=== PATIENT | female | born 2005 | race Caucasian/White ===

== ENCOUNTER 2024-08-02 11:56 | Emergency (ER) | payer BC, SELFPAY ==
[2024-08-02 12:18] VITALS: BP 131/88; PULSE 72; RESP 16; TEMP 37.1; O2SAT 100; BMI 21.9
--- NOTE | 2024-08-02 12:36 | ED_ITS ---
HPI - Female Genitourinary General Chief complaint: Urogenital Problems, Female Stated complaint: possible UTI Time Seen by Provider: 08/02/24 11:57 History of Present Illness HPI Narrative: This 18-year-old female comes in with dysuria symptoms for the past couple days. She reports increased frequency and pain when voiding. She states that the symptoms seem to be getting worse. She does not have a previous history of urinary tract infection. She does not report any fevers. Related Data Previous Rx's ?Medication ?Instructions ?Recorded cephalexin 500 mg capsule 500 mg PO TID 7 days #21 caps 08/02/24 Allergies Allergy/AdvReac Type Severity Reaction Status Date / Time No Known Drug Allergies Allergy Verified 08/02/24 12:18 Review of Systems Status of ROS: Reports: 10 or more systems reviewed and unremarkable except as noted in History and below Narrative: Constitutional: No fevers, no weight gain or loss. Eyes: No discharge. No vision changes. HENT: No congestion, no sore throat, no ear pain. Cardiovascular: No chest pain, no palpitations. Respiratory: No shortness of breath, no wheezes, no cough. Gastrointestinal: No vomiting, no diarrhea. Genitourinary: Dysuria symptoms as described above. Musculoskeletal: Normal range of motion. Skin: No rashes, no pruritis. Neurological: No dizziness, weakness, sensory change, speech change. Endo/Heme/Allergies: No bruising or bleeding. No polydipsia. Pysch: no suicidality, no anxiety, no insomnia. All other systems reviewed and are negative. Exam Narrative: Exam Narrative: Constitutional: Well-developed, well-nourished, no acute distress. HEENT: Normocephalic, atraumatic. Neck: Normal range of motion. Nontender. Supple. Heart: Regular. No murmurs. Normal rate. Intact distal pulses. Lungs: Clear to auscultation. No chest discomfort. No wheezes, rhonchi, or rales. Abdomen: Normal bowel sounds. Nontender. No rebound tenderness. Genitalia: Deferred. Back: No midline tenderness. Normal range of motion. Extremities: Normal range of motion. No injury. Skin: Intact. No rash. Warm. No erythema or pallor. Neurologic: No altered sensation. No weakness. Alert and oriented. Psychiatric: No suicidality. No anxiety or depression. No insomnia. Nursing notes and vitals signs are reviewed. Const: Vital Signs, click to edit/add: Vital Signs - 24 hr 08/02/24 12:18 Temperature 98.7 F Pulse Rate [Pulse Oximeter] 72 Respiratory Rate 16 Blood Pressure [Ri ght Upper Arm] 131/88 Pulse Oximetry 100 Oxygen Delivery Me thod Room Air Course Vital Signs Vital signs: Initial Vital Signs Temperature 98.7 F 08/02/24 12:18 Temperature Source Temporal Artery Scan 08/02/24 12:18 Pulse Rate 72 08/02/24 12:18 Pulse Rhythm Regular 08/02/24 12:18 Respiratory Rate 16 08/02/24 12:18 Blood Pressure 131/88 08/02/24 12:18 Blood Pressure Mean 102 08/02/24 12:18 Blood Pressure Position Sitting 08/02/24 12:18 Pulse Oximetry 100 08/02/24 12:18 Oxygen Delivery Method Room Air 08/02/24 12:18 Vital Signs Temperature 98.7 F 08/02/24 12:18 Pulse Rate 72 08/02/24 12:18 Respiratory Rate 16 08/02/24 12:18 Blood Pressure 131/88 08/02/24 12:18 Pulse Oximetry 100 08/02/24 12:18 Oxygen Delivery Method Room Air 08/02/24 12:18 Temperature 98.7 F 08/02/24 12:18 Pulse Rate 72 08/02/24 12:18 Respiratory Rate 16 08/02/24 12:18 Blood Pressure 131/88 08/02/24 12:18 Pulse Oximetry 100 08/02/24 12:18 Oxygen Delivery Method Room Air 08/02/24 12:18 MDM - Female Genitourinary MDM Narrative Medical decision making narrative: This patient comes in with dysuria symptoms suspicious for urinary tract infection. Urinalysis does confirm evidence of infection. The patient did receive an oral tablet of peridium here. I provided a prescription for Keflex. Lab Data Labs: Lab Results 08/02/24 Range/Units 12:30 Urine Color Yellow (Yellow) Urine Appearance Clear (Clear) Urine pH 7.0 (5.0-8.5) Ur Specific [employer] 1.010 (1.000-1.030) Urine Protein Negative (Negative) Urine Glucose (UA) Negative (Negative) Urine Ketones Negative (Negative) Urine Blood 1+ A (Negative) Urine Nitrite Negative (Negative) Urine Bilirubin Negative (Negative) Urine Urobilinogen 0.2 (0.2-1.0) Ur Leukocyte Esterase 1+ A (Negative) Urine RBC 0-2 (0-2) Urine WBC 10-25 A (0-5) Ur Squamous Epith Cells Few (None-Few) Urine Bacteria Moderate A (None) Discharge Plan Discharge Clinical Impression: Urinary tract infection Additional Instructions: Take medication as prescribed. Take plenty of fluids. Follow up with MD return if worsening. Prescriptions: New cephalexin 500 mg capsule 500 mg PO TID 7 Days Qty: 21 0RF Follow Up/Referrals: Kristal Beaver MD [Staff Physician] - Stand Alone Forms: [address] [employer] Info Instructions
[2024-08-02 12:54] LABS: Appearance Urine Clear (Clear); Bilirubin Urine Negative (Negative); Blood Urine 1+ (Negative); Color Urine Yellow (Yellow); Glucose Urine Negative (Negative); Ketones Urine Negative (Negative); Leukocyte Esterase Urine 1+ (Negative); Nitrite Urine Negative (Negative); Protein Urine Negative (Negative); Urobilinogen Urine 0.2 (0.2-1.0)
[2024-08-02 13:15] LABS: Bacteria Urine Moderate; RBC Urine 0-2 (0-2); Squamous Epithelial Cell Urine Few (None-Few)
[2024-08-02] MEDS: PHENAZOPYRIDINE HCL 200 MG TABLET PO (13:42)
== END 2024-08-02 13:47 | disposition home or self-care (01) ==
PROVIDERS: Emergency Provider Emergency Medicine Emergency Medical Services
DX: N39.0 Urinary tract infection, site not specified (principal)
CPT/HCPCS: 81001; 87086; 87186; 99283; 99284; A9270

== ENCOUNTER 2024-11-24 10:01 | Outpatient (CLI) | payer BC, SELFPAY | END 2024-11-24 10:02 | disposition home or self-care (01) | LOC: US 10:02 | PROVIDERS: Visit Provider Advanced Practice Midwife | DX: Z34.91 Encounter for supervision of normal pregnancy, unspecified, first trimester (principal); O20.9 Hemorrhage in early pregnancy, unspecified; Z3A.08 8 weeks gestation of pregnancy | CPT/HCPCS: 76817; 83021; 86592; 86703; 86704; 86706; 86762; 86787; 86803; 86850; 86900; 86901; 87086; 87340 ==

== ENCOUNTER 2025-01-19 11:46 | Outpatient (CLI) | payer BC, SELFPAY ==
[2025-01-19 16:25] LABS: Chlamydia DNA Amplified* NOT DETECTED (No Detected); GC DNA Amplified* NOT DETECTED (No Detected)
== END 2025-01-19 11:47 | disposition home or self-care (01) ==
LOC: NFLDREF 11:46
PROVIDERS: Visit Provider Advanced Practice Midwife
DX: Z34.92 Encounter for supervision of normal pregnancy, unspecified, second trimester (principal); Z3A.16 16 weeks gestation of pregnancy
CPT/HCPCS: 87491; 87591

== ENCOUNTER 2025-02-16 12:06 | Outpatient (CLI) | payer BC, SELFPAY ==
--- NOTE | 2025-02-16 12:15 | CRLHL7_ITS ---
For Patients: As a result of the 21st Century Cures Act, medical imaging exams and procedure reports are released immediately into your electronic medical record. You may view this report before your referring provider. If you have questions, please contact your health care provider. LMP: 09/27/2024. ANGÉLICA by LMP: 07/04/2025. GA: 20w, 2d. Single. INDICATION: Supervision of normal . CERVIX: Visualized. Measurement: 3.9. POSITIONING: Breech. AMNIOTIC FLUID: 4.7 cm SDP. PLACENTA: Technique: Transabdominal. PLACENTA POSITION: Posterior. Placenta tip to internal os 4.9 cm. Placental insertion central. DOPPLER: Umbilical artery: 3-vessel cord. Biometry: BPD: 4.6 cm. 19w, 6d, 34 percent. HC: 17.7 cm. 20w, 1d, 35 percent. AC: 15.1 cm. 20w, 2d, 44 percent. FL: 3.2 cm. 20w, 0d, 32 percent. FL/AC ratio: 21.31 percent. HC/AC ratio: 1.17. Heart Rate: 145 bpm. EFW: 335.25 g. Weight: 0 lbs, 12 oz. age by this US: 20w, 1d. ANGÉLICA by this US: 07/05/2025. Percentile by ANGÉLICA: 38 percent. SURVEY: Observed Structures Cerebellum: Yes. 2.0 cm; 20w2d. Cisterna Magna: Yes. 3.0 mm. Nuchal Fold: Yes. 5.4 mm. Lateral Ventricle: Yes. 6.3 mm. CSP: Yes. Midline Falx: Yes. Choroid Plexus: Yes. Spine: Yes. Stomach: Yes. Abd Cord Insertion: Yes. Urinary Bladder: Yes. Kidneys: Yes. Diaphragm: Yes. Nose/lips: Yes. Orbital view: Yes. Profile: Yes. Upper Extremities: Yes. Lower Extremities: Yes. Hands: Yes. Feet: Yes. Four-Chamber Heart: Yes. LVOT: Yes. RVOT: No. 3VV: No. 3VTV: No. IMPRESSION: 1. Concordance of clinical and sonographic dating. 2. Incomplete visualization of the RVOT, 3 vessel view and 3 vessel trachea view. Remainder of the anatomic survey normal. Short-term follow-up recommended. Clint Chowdhury M.D. Diagnostic Radiologist [email or web address] bM/Dictated by: Clint Chowdhury MD @ 02/16/2025 8:55:00 PM (Electronically Signed)
== END 2025-02-16 12:07 | disposition home or self-care (01) ==
LOC: US 12:06
PROVIDERS: Visit Provider Advanced Practice Midwife
DX: Z34.92 Encounter for supervision of normal pregnancy, unspecified, second trimester (principal); O35.8XX0 Maternal care for other (suspected) fetal abnormality and damage, not applicable or unspecified; Z3A.20 20 weeks gestation of pregnancy
CPT/HCPCS: 76805

== ENCOUNTER 2025-03-23 12:16 | Outpatient (CLI) | payer BC, SELFPAY ==
--- NOTE | 2025-03-23 12:15 | CRLHL7_ITS ---
For Patients: As a result of the Century Cures Act, medical imaging exams and procedure reports are released immediately into your electronic medical record. You may view this report before your referring provider. If you have questions, please contact your health care provider. OB ULTRASOUND FOLLOW-UP ANATOMY LMP: 09/27/2024. ANGÉLICA by LMP: 07/04/2025. GA: 25 w, 2 d. Single. INDICATION: Missing heart view on anatomy scan (hyperactive baby). TECHNIQUE: Real time moon scale imaging of the fetus was performed. Transabdominal imaging performed. CERVIX: Not visualized. POSITIONING: Breech, transverse, multiple. AMNIOTIC FLUID: 6.1 cm SDP (N: greater than 2 x 1 cm) PLACENTA: Technique: Transabdominal. PLACENTA POSITION: Fundal, posterior. DOPPLER: heart rate: 137 bpm. IMPRESSION: Normal four-chamber heart, outflow tracts, three-vessel view, three-vessel trachea view, ductal arch and IVC/SVC. Clint Chowdhury M.D. Diagnostic Radiologist [email or web address] SP/Dictated by: Clint Chowdhury MD @ 03/23/2025 7:11:00 PM (Electronically Signed)
== END 2025-03-23 12:17 | disposition home or self-care (01) ==
LOC: US 12:17
PROVIDERS: Visit Provider Advanced Practice Midwife
DX: Z36.2 Encounter for other antenatal screening follow-up (principal); Z3A.25 25 weeks gestation of pregnancy
CPT/HCPCS: 76816

== ENCOUNTER 2025-04-20 10:20 | Outpatient (CLI) | payer BC, SELFPAY | END 2025-04-20 10:21 | disposition home or self-care (01) | LOC: NFLDREF 04-22 15:53 | PROVIDERS: Visit Provider Advanced Practice Midwife | DX: Z34.03 Encounter for supervision of normal first pregnancy, third trimester (principal) | CPT/HCPCS: 86592 ==

== ENCOUNTER 2025-06-08 10:19 | Outpatient (CLI) | payer BC, SELFPAY ==
[2025-06-09 13:45] LABS: Strep B DNA Probe POSITIVE (Negative)
[2025-06-09 13:55] LABS: Strep B Susceptibility Needed? No
== END 2025-06-08 10:20 | disposition home or self-care (01) ==
LOC: NFLDREF 10:19
PROVIDERS: Visit Provider Advanced Practice Midwife
DX: Z34.90 Encounter for supervision of normal pregnancy, unspecified, unspecified trimester (principal)
CPT/HCPCS: 87081; 87653

== ENCOUNTER 2025-07-06 08:30 | Outpatient (CLI) | payer BC, SELFPAY | END 2025-07-06 08:31 | disposition home or self-care (01) | LOC: NFLDREF 07-17 00:09 | PROVIDERS: Visit Provider Advanced Practice Midwife | DX: Z34.93 Encounter for supervision of normal pregnancy, unspecified, third trimester (principal) | CPT/HCPCS: 87081; 87653 ==

== ENCOUNTER 2025-07-09 11:05 | Outpatient (CLI) | payer BC, SELFPAY ==
--- NOTE | 2025-07-09 11:15 | CRLHL7_ITS ---
For Patients: As a result of the Cures Act, medical imaging exams and procedure reports are released immediately into your electronic medical record. You may view this report before your referring provider. If you have questions, please contact your health care provider. OB ULTRASOUND BIOPHYSICAL PROFILE CLINICAL HISTORY: Post-term . TECHNIQUE: Real time moon scale imaging of the fetus was performed. Transabdominal imaging performed. COMPARISON: 03/23/2025, 02/16/2025, 11/24/2024. FINDINGS: ANGÉLICA by LMP: 07/04/2025. GA: 40 weeks 6 days. Cervix: Not visualized. Positioning: Vertex. Amniotic Fluid: 6.9 cm SDP. BIOPHYSICAL PROFILE Gross Body Movements: 2 Tone: 2 Respiratory Activity: 2 Amniotic Fluid SDP: 2 Total Score: 8 Placenta: TA. Placenta Position: Posterior. Dopplers: 137 bpm. IMPRESSION: 1. Normal biophysical profile score of 8/8. 2. Grade 3 placenta. Clint Chowdhury M.D. Diagnostic Radiologist [email or web address] Transcribed: 2:01 pm DW/Dictated by: Clint Chowdhury MD @ 07/09/2025 12:20:00 PM (Electronically Signed)
== END 2025-07-09 11:06 | disposition home or self-care (01) ==
LOC: US 11:06
PROVIDERS: Visit Provider Advanced Practice Midwife
DX: O48.0 Post-term pregnancy (principal)
CPT/HCPCS: 76819

== ENCOUNTER 2025-07-11 18:45 | Inpatient (IN) | payer BC, SELFPAY ==
[2025-07-11] VITALS (24 sets, daily range): BP systolic 123–164; BP diastolic 59–98; PULSE 67–98; RESP 20; TEMP 36.4–37; O2SAT 98–99; BMI 31.1
[2025-07-11 18:25] LABS: Amnisure Rom* POSITIVE
[2025-07-11] MEDS: AMPICILLIN 2 GM in 0.9 % SODIUM CHLORIDE Mini-bag 100 ML IVPB (19:40)
[2025-07-11] MEDS: LACTATED RINGERS 1000 ML 1,000 ML 125 ML IV (19:40)
--- NOTE | 2025-07-11 20:21 | W.PM.LDBA ---
Subjective History of Present Illness Date Seen: 07/11/25 Narrative: Maggie is being admitted to Labor and Delivery for PROM. She is a 19 year old at 41.0 weeks gestation. Her full history and physical was dictated by Edward Enriquez CNM on 06/15/25. Please see this for details. She ruptured at home around 1715 this evening and continues to leak clear fluid. She has been grace today starting around 0500 and the have been slowly increasing in intensity and frequency throughout the day. She is currently grace regularly and is feeling them in her abdomen and upper legs. She is appreciating good movement. She is supported by her partner Noah. Since admission her blood pressures have been elevated. She denies a headache, RUQ pain, or visual changes. We will do labs and a second IV has been started per policy. We reviewed the possible diagnosis of preeclampsia with severe features and the impactions of the diagnosis for labor. We reviewed that if magnesium was needed she would risk out of CNM care. Specific Issues/Plans Partner: Noah? H&P:?Completed 06/15/25 by YOUSIF Marie # Anemia, Hgb 10.4 at 28wks. Started PO supplement. #GBS positive (repeated at 40 weeks) Ok with antibiotics in labor # Grade 3 placenta at 40.5wks. Reviewed with pt. Imaging:??? Hep B non-immune. 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 COVID: []? Flu: []? Tdap: declined? RSV: ? 32 week mental health: 05/12/2025? Last pap:? none, will plan for 6 wk PP visit? OB - Problem Based A/P Additional Plan (1) SROM (spontaneous rupture of membranes): Status: Acute (2) Pain during labor: Status: Acute (3) Elevated BP without diagnosis of hypertension: Status: Acute (4) Anemia affecting : Status: Acute Plan ASSESSMENT: ? 19yo at 41.0 weeks gestation ? complicated by: anemia, GBS+? Labor type: Spontaneous, Early labor, SROM ? Category 1 tracing?? ? Labor complicated by: elevated blood pressures? GBS positive ? ? PLAN: ? 1. Antibiotic prophylaxis treatment per protocol? 2. Reviewed risks and benefits of Pitocin augmentation vs expectant management. Pt prefers expectant management. Will reevaluate around 6 hours post rupture.? 3. Desires water . Consent signed. Hep C negative. Aware that blood pressures will likely exclude her from this option.? 4. Candidate for analgesia of choice. Planning unmedicated .? 5. Monitor blood pressures per policy. Labs to be collected.? 6. Anticipate ? 7. Second IV placed for elevated blood pressures. ? Delivery/Labor/Induction Plan Plan: expectant management OB Result Labs Blood Type: B (+) positive Rubella: immune RPR/VDLR: nonreactive GBS Status: positive HBsAG: negative OB Exam Physical Exam Vital signs: Temp Pulse Resp BP Pulse Ox 98.6 F 84 20 150/88 H 98 07/11/25 18:03 07/11/25 20:18 07/11/25 18:03 07/11/25 20:18 07/11/25 17:59 Detailed Labor and Delivery Exam Patient Gravid: yes Dilation (cm): 1 (per RN exam) Effacement (%): 60 Consistency: soft Tachysystole: No Contraction intensity: Moderate Fetus (Single) Station: -3 Amniotic Membrane Status: SROM Amniotic Membrane Fluid Description: Clear Heart Rate Baseline: 130 Monitor Accelerations: Present Monitor Decelerations: None Executive Marketing Assistant Variability: Moderate (6-25) (periods of marked)
--- NOTE | 2025-07-11 20:33 | P.ANES_ITS ---
Anesthesia Charges Start Date/Time Anesthesia Start Date: 07/11/25 Anesthesia Start Time: 19:45 Stop Date/Time Anesthesia Stop Date: 07/11/25 Anesthesia Stop Time: 21:16 Coding CPT Codes CPT Codes: ANESTH CS DELIVERY - 81413 ([id number]) P2 - PATIENT W/MILD SYST DISEASE, QZ - ETHICAL HACKER SVC W/O DIRECTOR EMBALMER BY
--- NOTE | 2025-07-11 20:33 | W.ANESCHARGE ---
Anesthesia Charges Start Date/Time Anesthesia Start Date: 07/11/25 Anesthesia Start Time: 19:45 Stop Date/Time Anesthesia Stop Date: 07/11/25 Anesthesia Stop Time: 21:16 Coding CPT Codes CPT Codes: ANESTH CS DELIVERY - 11662 ([id number]) P2 - PATIENT W/MILD SYST DISEASE, QZ - URGENT CARE PHYSICIAN SVC W/O SWITCH ADJUSTER BY
--- NOTE | 2025-07-11 20:34 | P.NB_ITS ---
Nerve Block Nerve Block Time Seen by Provider: 21:08 Date Seen: 07/11/25 Type of block requested by surgeon for post-operative analgesia: TAP Side: bilateral Time out performed: Yes Verification of patient name: Yes Verification of date of : Yes Site marking: site marked Name of person performing procedure: Aries Morris Continuous monitoring Was continuous monitoring of O2 sat, B/P, service crew supervisor, recorded every 15 minutes?: Yes Procedure Checklist: sterile prep, needles and gloves Ultrasound guided. Images saved: Yes Medications given in 5ml increments after negative aspiration: Marcaine %: 0.25 mL: 30 Needle gauge: 20 and Exparel mL: 10 Needle gauge: 20 Patient tolerated procedure well: Yes Additional comments: Injected in 5 mL increments after negative aspiration Block Charges Block Charge (with Pro Fee): TAP Bilateral Use of Ultrasound Machine for Block: Yes- US Guidance/pain block
[2025-07-11 21:06] LABS: Hematocrit* 33.5 % (33.0-51.0); Hemoglobin* 11.3 gm/dL (12.0-16.0); Mean Corpuscular HGB Conc 34 gm/dL (32-36); Mean Corpuscular Hemoglobin 31 pg (26-34); Mean Corpuscular Volume 91 fL (80-100); Red Blood Count* 3.69 m/uL (4.00-5.20); White Blood Count* 8.99 K/uL (4.50-11.00)
[2025-07-11 21:08] LABS: Slide Review Reflex No
[2025-07-11 21:26] LABS: Alanine Aminotransferase* 18 U/L (4-35); Aspartate Amino Transferase* 32 U/L (12-35); Blood Urea Nitrogen* 9 mg/dL (5-24); Creatinine* 0.5 mg/dL (0.5-1.5); Est. Creatinine Clearance* 147.23; Estimated Glomerular Filt Rate 137 ml/min
[2025-07-11] MEDS: AMPICILLIN 1 GM in 0.9 % SODIUM CHLORIDE Mini-bag 100 ML IVPB (23:35)
[2025-07-12] VITALS (106 sets, daily range): BP systolic 108–167; BP diastolic 54–103; PULSE 48–132; RESP 16–20; TEMP 36.6–37.1; O2SAT 90–100
--- NOTE | 2025-07-12 00:39 | P.OBPN_ITS ---
Subjective Date Seen: 07/12/25 Narrative: Maggie has continued to labor and has been working on position changes and the labor warmup. We reevaluated labor progress at 2215 and she was mostly unchanged at that time. She was feeling more intense contractions so requested to wait an additional 2 hours to evaluate the need for Pitocin. She is now grace more uncomfortably per her report but is coping well with them. On SVE by the RN (RN exam to keep examiner consistent) had minimal change. We reviewed the rec ommendation for IV Pitocin augmentation. She was reluctant but understood the rational and is agreeable. She had wanted an unmedicated but is now considering an epidural. We reviewed all other options. She is a candidate for an epidural whenever she chooses but will try hydrotherapy for now. Objective Vital Signs: Last Vital Signs Temp 98.2 F 07/11/25 23:39 Pulse 81 07/12/25 00:10 Resp 20 07/11/25 18:03 BP 133/81 07/12/25 00:10 Pulse Ox 98 07/11/25 17:59 Pelvic Exam Dilation (cm): 1.5 Effacement (%): 60 Station: -2 Contractions Monitor mode: External Contraction Frequency: 3-5 Contraction pattern: Regular Contraction intensity: Moderate Assessment Assessment: early labor Station: -2 Amniotic Membrane Status: SROM Heart Rate Baseline: 135 Cd Reactor Operator Variability: Moderate (6-25) Monitor Accelerations: Present Monitor Decelerations: None Plan Plan: ASSESSMENT: ? 19yo at 41.1 weeks gestation ? complicated by: anemia, GBS+? Labor type: Spontaneous, Early labor, SROM ? Category 1 tracing?? ? Labor complicated by: gestational hypertension, SROM >7 hrs GBS positive ? ? PLAN: ? 1. Continue antibiotic prophylaxis treatment per protocol? 2. Reviewed risks and benefits of Pitocin augmentation vs expectant management. Pt is agreeable to Pitocin augmentation but would like to try to relax with hydrotherapy first. Will plan to start after 30 min or less.? 3. Desires water . Consent signed. Hep C negative. Aware that blood pressures will likely exclude her from this option.? 4. Candidate for analgesia of choice. Planning unmedicated but open to an epidural.? 5. Monitor blood pressures per policy. Labs normal. Diagnosed with gestational hypertension based on blood pressures over 140's greater than 4 hours apart.? 6. Anticipate ?
[2025-07-12] MEDS: OXYTOCIN 30 unit/500 ML in NS 30 UNIT/500 ML BAG IVPB (01:07)
[2025-07-12] MEDS: BUPIVACAINE 0.25% PF 10 ML 10 ML ML EPIDURAL (04:41)
[2025-07-12] MEDS: ROPIVACAINE 0.2% 100 ml 100 ML 12 MG EPIDURAL ×3 (04:41→18:45)
--- NOTE | 2025-07-12 04:51 | P.ANBPRC_ITS ---
PFSH PFS Medical History (Updated 07/11/25 @ 20:49 by Jonna Coronel CNM) No pertinent past medical history ?Z78.9 - Other specified health status (ICD-10) Surgical History (Updated 06/15/25 @ 12:30 by Delma Enriquez CNM) No pertinent past surgical history ?Z78.9 - Other specified health status (ICD-10) Social History (Updated 06/15/25 @ 12:30 by Delma Enriquez CNM) Narrative: SOCIAL? ? Education: some college? ? Work: [employer] from home? ? Partner: Noah? works for [employer] Lives with: Noah Pets: none Abuse: Denies past ? Unable to assess current, partner present? ? Special Diet: Denies? ? Ok with a blood transfusion: yes? ? Culture or yarsani beliefs: denies? RISK FACTORS? ? Exercise Times/wk: walking daily? ? Depression/Anxiety: depression in HS ? Previous Treatments early HS was on SSRI ? Therapy NA Seat Belt Use: Routinely ? Smoking: Denies past/present? ?Vaping quit 3 years ago for 2 years Alcohol/day: Denies while ?denies use when not ? Caffeine: coffee 1- 2 cups? ? Drug Use: Denies past/present? ? THC use in past quit about 3 years ago nothing current What is your current living situation?: I presently have a place to live Problems where you live: no known problems In the past 12 months, utilities in danger of being shut off: no In past 12 months, lack of transportation kept you from medical appts, meetings, work, or getting things needed for daily living: no In the past 12 mos, have been you worried that your food would run out before you had money to buy more?: never true In the past 12 mos, the food you bought just didn't last and you didn't have money to buy more?: never true Smoking Status: Never smoker How often does anyone, including family, friends and others, physically hurt you : never How often does anyone, including family, friends and others, insult or talk down to you: never How often does anyone, including family, friends and others, threaten you with harm: never How often does anyone, including family, friends and others, scream or curse at you: never Meds Home Medications and Allergies Home Medications ?Medication ?Instructions ?Recorded ?Confirmed ?Type ascorbic acid (vitamin C) 1,000 mg 1 g PO QDAY 5 07/11/25 History capsule cholecalciferol (vitamin D3) 25 25 mcg PO QDAY 5 07/11/25 History mcg (1,000 unit) capsule omega-3 fatty acids-fish oil 360 2 cap PO QDAY 07/11/25 History mg-1,200 mg capsule (Fish Oil) vitamins no.167-folic 1 tab PO DAILY 04/20/25 07/11/25 History acid 400 mcg-dha 25 mg chewable tablet (One-A-Day ) ferrous sulfate 325 mg (65 mg 325 mg PO QDAY 05/12/25 07/11/25 History iron) tablet (Feosol) Allergies Allergy/AdvReac Type Severity Reaction Status Date / Time No Known Drug Allergies Allergy Verified 07/09/25 13:11 Results Labs Labs: Laboratory Results - last 24 hr 07/11/25 07/11/25 18:13 21:00 WBC 8.99 RBC 3.69 L Hgb 11.3 L Hct 33.5 MCV 91 MCH 31 MCHC 34 Plt Count 214 BUN 9 Creatinine 0.5 Estimated Creat Clear 147.23 Estimated GFR 137 AST 32 ALT 18 Membrane Rupture POSITIVE Blood Type B Positive Antibody Screen NEGATIVE Vital Signs Vital Signs: Last Vital Signs Temp 98.6 F 07/12/25 04:48 Pulse 90 07/12/25 04:48 Resp 16 07/12/25 01:47 BP 151/72 H 07/12/25 04:48 Pulse Ox 100 07/12/25 04:50 Weight: 79.6 kg Height: 160.02 cm Anesthesia Procedures Epidural Insertion Patient Location: OB Start Time: 04:15 Stop Time: 05:15 Start Date: 07/12/25 Stop Date: 07/12/25 Reason for Block: procedure for pain Patient Position: sitting Performed By: Aries Morris Preanesthetic Checklist: IV checked, risks and benefits discussed, monitors and equipment checked, pre-op evaluation, timeout performed and anesthesia consent Prep: chlorhexidine gluconate Monitoring: blood pressure monitoring, continuous pulse oximetry and heart rate Approach: midline Vertebral Space: lumbar (1-5) Epidural Technique: CONG saline Needle Type: Tuohy needle Injection Technique: continuous catheter Needle gauge: 17 Needle Length (cm): 10 cm Needle Insertion Depth (cm): 6 Catheter Gauge: 19 Catheter Type: multi-orifice Catheter at skin depth (cm): 12 Test Dose Result: negative and lidocaine 1.5% with epinephrine 1 to 200,000
[2025-07-12] MEDS: AMPICILLIN 1 GM in 0.9 % SODIUM CHLORIDE Mini-bag 100 ML IVPB ×4 (04:54→19:14)
[2025-07-12] MEDS: LACTATED RINGERS 1000 ML 1,000 ML 125 ML IV ×2 (06:26→15:45)
--- NOTE | 2025-07-12 11:35 | PM.OBPNL ---
Subjective Date Seen: 07/12/25 Narrative: Maggie was agreeable to and started on Pitocin augmentation over night. she is currently at 11 mU and is grace regularly. She did receive epidural analgesia over night after trying hydrotherapy and nitrous. She has been able to sleep some since placement and is able to rest comfortably. We reviewed AROM augmentation and she is agreeable. She was found to be 8cm/90%/0 station after AROM. AROM without difficulty with a very bulging bag with light stained amniotic fluid. Objective Vital Signs: Last Vital Signs Temp 98.3 F 07/12/25 10:44 Pulse 78 07/12/25 11:20 Resp 16 07/12/25 01:47 BP 132/75 07/12/25 11:20 Pulse Ox 100 07/12/25 05:05 Pelvic Exam Dilation (cm): 8 Effacement (%): 90 Station: 0 Contractions Monitor mode: External Contraction Frequency: 2-4 Contraction pattern: Regular Contraction intensity: Strong/Firm Pitocin Rate (mU/min): 11 Assessment Assessment: active labor Station: 0 Amniotic Membrane Status: SROM (AROM of forebag ) Status: Category l Heart Rate Baseline: 130 Program Analyst Variability: Moderate (6-25) Monitor Accelerations: Present Monitor Decelerations: None Plan Plan: ASSESSMENT: ? 19yo at 41.1 weeks gestation ? complicated by: anemia, GBS+? Labor type: Spontaneous, Early labor, SROM, AROM of forebag ? Category 1 tracing?? ? Labor complicated by: gestational hypertension, SROM >30 hrs GBS positive, adequately treated ? ? PLAN: ? 1. Continue antibiotic prophylaxis treatment per protocol? 2. Continue on Pitocin augmentation. Reviewed risks/benefits of AROM of 2nd bag and she is agreeable. ? 3. Effective epidural in place. 5. Continue to monitor blood pressures per policy. Labs normal.? 6. Anticipate ?
[2025-07-12] MEDS: LABETALOL HCL 5 MG/ML inj IVP ×2 (19:39→19:51)
[2025-07-12] MEDS: MAGNESIUM IV 4 GM/100 ML PIGGYBACK IVPB (20:08)
[2025-07-12] MEDS: MAGNESIUM Infusion 40 GM/1,000 ML IV.SOLN IVPB (20:38)
[2025-07-12] MEDS: miSOPROStoL 800 MCG/4 TABLET PR (20:43)
[2025-07-12] MEDS: TRANEXAMIC ACID 100 MG/ML INJ 1000 MG IV (21:05)
--- NOTE | 2025-07-12 21:15 | P.OBPN_ITS ---
Subjective Time Seen by Provider: 19:00 Date Seen: 07/12/25 Narrative: Maggie reached complete and started pushing at 1539. after a while of pushing it became clear that baby was in an LOP position. she was pushing hard despite a dense epidural but was feeling more pain in her lower back that made pushing more difficult. Around 1550 I reached out to Dr. Harrison to discuss the possibility of an internal rotation. She was not very confident in its success but was open to consultation PRN. Decided to continue pushing with her with encouragement. She did progress with perineal pressure to help direct pushes which she felt improved her confidence in pushing. By the time of this note it was felt that baby had rotated to YENI and progress was being made. Pitocin had been decreased to 6mU due to tachysystole but is now being increased again as contractions have spaced out again. There had been an increase in variables that have improved with rotation of the head. Will continue to support pushing effects and increase Pitocin as needed. 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 19yo at 41.1 weeks gestation ? complicated by: anemia, GBS+? Labor type: Second stage, prolonger ROM ? Category 2 tracing?? ? Labor complicated by: gestational hypertension, prolonged ROM GBS positive, adequately treated ? ? PLAN: ? 1. Continue antibiotic prophylaxis treatment per protocol? 2. Continue on Pitocin augmentation. Increase as needed for adequate contractions. ? 3. Effective epidural in place. 5. Continue to monitor blood pressures per policy. 6. Consultation with OB for possible internal rotation but baby rotated spontaneously with continue pushing and position changes. 7. Continue second stage with support, encouragement, and continue position changes to promote position and descent. 8. Anticipate ?
--- NOTE | 2025-07-12 21:46 | W.PM.OBVAGDE ---
OB Procedure Vag Delivery Mother Details Mother Details: The patient is a 19 year-old, 1, Para 0, admitted on 07/11/25 at 41.1 Days gestation. : 1 Para: 1 Weeks Gestation: 41.1 Admission Date: 07/11/25 Additional Details Amniotic Membrane Status: SROM Amniotic Membrane Rupture Date: 07/11/25 Amniotic Membrane Rupture Time: 17:15 Amniotic Membrane Fluid Description: Meconium Stained and Green Analgesia/Anesthesia Type: Epidural Waterbirth: No Pitcoin: Yes Intrapartal Events: Labor Augmentation, ROM >18 Hours and Prolonged 2nd Stage >2.5 Hrs Delivery augmentation: rupture of membranes and pitocin Labor Onset: 11:30 Complete: 15:39 Pushin:48 Heart: heart tones during second stage were category 2. Variable deceleration were common in the first 1.5-2 hours of pushing but improved with head rotation. There was a prolonged deceleration to the 80's with a large head . Delivery Details Delivery Date: 07/12/25 Delivery Time: 20:27 Route of delivery: Gender: Male Viability: Alive; Heart Rate Present Position at Delivery: OA Delivery Details: Patient was admitted for PROM and progressed slowly with Pitocin and rupture of a 2nd bag augmentation. SROM noted on 07/11/25 at 1715 with clear fluid. AROM of a second bag showed light stained amniotic fluid that did progress to moderately stained as second stage progressed. She did develop preeclampsia with severe features at 2007 with magnesium was started and blood pressures were treated. A consultation with Dr. Harrison and the agreement was made that she would manage the preeclampsia and after delivery but that I would continue to manage the labor given how close she was to delivery. At this time I also requested that she come in as there was concern that she could need vacuum assistance due to slow descent and maternal fatigue. In the end these were not needed but she graciously agreed to come in to evaluate anyway. Patient was complete at 1539 and pushing at 1548. of a viable male at 2041 in left tilt. There was a prolonged crown and difficulty delivering the head over multiple contractions. Soft tissue was evaluated but this was not impeding delivery as I was able to palpate around the head without difficulty. Gentle traction was placed on the head with the last few pushes to help with delivery. Vertex delivered YENI but rotated LOP after delivery of the head. No shoulder. Loose nuchal x1 was easily reduced. Body delivered easily and without incident. passed to mothers abdomen.. No cry and minimal tone was initially noted so the cord was immediately clamped and cut and he was brought to the warmer for assessment. By 1 minute of life her had improved and her was brought back to [facility] chest when he was deemed stable. APGARS were 7 at one minute and 9 at five minutes respectively. Intact placenta with a 3 vessel cord delivered spontaneously at 2040. Fundus firm with massage. Pitocin was started immediately after delivery and rectal Cytotec was given shortly after for decreased fundal tone and bleeding. Her bladder was emptied for about 300mL urine. There were clots with fundal massage and continued trickling of blood so TXA was also initiated. A small 2nd degree identified and repaired in typical fashion. QBL 900 cc. Mother and baby stable; mother plans to breastfeed. weight 3465g. 1 Minute Interval Total Score: 7 5 Minute Interval Total Score: 9 Additional Details Shoulder Dystocia: No Placenta Delivery Time: 20:41 Placental Delivery Description: Spontaneous Delivery repair: Vicryl Procedure Done: Global Blood Loss: 900 Laceration: Perineal - 2nd Degree Episiotomy Description: None Blood Loss Measurement Type: QBL Bakri Used: No Sponge/Need Count Correct: Yes Cord Vessel Description: 3 Vessels, Nuchal Cord and Reduced Event Summary Status: Mother and were stable after delivery. Disposition: floor
--- NOTE | 2025-07-12 22:12 | PM.OBCN1 ---
OB - CN: HPI Date of Consult Date Seen: 07/12/25 Patient: [facility] Patient Consult date: 07/12/25 Requesting Physician: Jonna Coronel CNM Primary Care Provider: Not a Local Provider Consult Narrative Reason for consult: gestational hypertension Narrative: The patient is a 19 year old G 1 P 0 at 41 1/7 weeks gestation that was admitted to the Center on 07/11/25 for PROM. Labor augmented with pitocin and amniotomy of forebag. Received GBS prophylaxis per protocol. During first stage of labor, she had 2 BP values 160/90s, not sustained with repeats 140s/80-90s. Labs were normal and the increased blood pressure was attributed to heightened shaking anxiety. Overnight, she had mildly elevated Bps 140-150s/70-90s. This evening, during her second stage of labor, following 2 hours of active pushing, she had sustained elevation of BP 163-167/79-89 over 30 minutes. She was treated with 2 doses of IV labetalol and I was notified and recommended starting magnesium sulfate for 24 hours. History of Present Dating criteria: based on LMP care: [facility] Ultrasounds: normal 1st trimester US and normal mid trimester US Medical Complications: anemia History History 1 Elective abortions Para 0 Spontaneous abortions Hx # Term Pregnancies Ectopic pregnancies Hx # Pregnancies Multiple births Number of Living Children 0 Labs Blood type: B (+) positive Rubella: immune RPR/VDLR: nonreactive GBS status: positive HBsAG: negative OB Labs: Lab Assessment Start: 07/11/25 18:53 Freq: ONCE Status: Complete Protocol: PC.OBGBS Activity Type Activity Date Activity User E-sign Co-sign Detail Recorded Client Recorded Date Recorded By Document 07/11/25 18:53 [facility] No Response 07/11/25 19:08 [facility] 07/11/25 18:53 Lab Assessment GBS Status positive GBS Additional Criteria None Is Patient Allergic to Penicillin? No Treatment Required OK Are Labs Available Yes Maternal Blood Type B Maternal RH Factor Positive Evaluate Maternal Rubella Immune Status Immune Hepatitis B Surface Antigen Negative Maternal HIV Status Negative Maternal Syphillis (RPR) Status Negative [facility] Medical History No pertinent past medical history ?Z78.9 - Other specified health status (ICD-10) Surgical History No pertinent past surgical history ?Z78.9 - Other specified health status (ICD-10) Social History Narrative: SOCIAL? ? Education: some college? ? 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 ? Partner: Noah? works for [email or web address] Lives with: Noah Pets: none Abuse: Denies past ? Unable to assess current, partner present? ? Special Diet: Denies? ? Ok with a blood transfusion: yes? ? Culture or jewish beliefs: denies? RISK FACTORS? ? Exercise Times/wk: walking daily? ? Depression/Anxiety: depression in HS ? Previous Treatments early HS was on SSRI ? Therapy NA Seat Belt Use: Routinely ? Smoking: Denies past/present? ?Vaping quit 3 years ago for 2 years Alcohol/day: Denies while ?denies use when not ? Caffeine: coffee 1- 2 cups? ? Drug Use: Denies past/present? ? THC use in past quit about 3 years ago nothing current What is your current living situation?: I presently have a place to live Problems where you live: no known problems In the past 12 months, utilities in danger of being shut off: no In past 12 months, lack of transportation kept you from medical appts, meetings, work, or getting things needed for daily living: no In the past 12 mos, have been you worried that your food would run out before you had money to buy more?: never true In the past 12 mos, the food you bought just didn't last and you didn't have money to buy more?: never true Smoking Status: Never smoker How often does anyone, including family, friends and others, physically hurt you: never How often does anyone, including family, friends and others, insult or talk down to you: never How often does anyone, including family, friends and others, threaten you with harm: never How often does anyone, including family, friends and others, scream or curse at you: never Meds Home Medications and Allergies Home Medications ?Medication ?Instructions ?Recorded ?Confirmed ?Type ascorbic acid (vitamin C) 1,000 mg 1 g PO QDAY 11/24/24 07/11/25 History capsule cholecalciferol (vitamin D3) 25 25 mcg PO QDAY 11/24/24 07/11/25 History mcg (1,000 unit) capsule omega-3 fatty acids-fish oil 360 2 cap PO QDAY 11/24/24 07/11/25 History mg-1,200 mg capsule (Fish Oil) vitamins no.167-folic 1 tab PO DAILY 04/20/25 07/11/25 History acid 400 mcg-dha 25 mg chewable tablet (One-A-Day ) ferrous sulfate 325 mg (65 mg 325 mg PO QDAY 05/12/25 07/11/25 History iron) tablet (Feosol) Allergies Allergy/AdvReac Type Severity Reaction Status Date / Time No Known Drug Allergies Allergy Verified 07/09/25 13:11 OB - H&P: Exam Physical Exam: Vital signs: Temp Pulse Resp BP Pulse Ox 98 F 89 16 154/85 H 100 07/12/25 21:22 07/12/25 22:02 07/12/25 01:47 07/12/25 22:02 07/12/25 05:05 Constitutional: Constitutional: mild distress Routine HEENT Exam: Head: Present normal inspection Routine Respiratory Exam: Comments: Normal respiratory effort Routine Cardiovascular Exam: Cardiovascular: RRR Detailed Abdominal Exam: Comments: gravid Routine Exam: Comments: fetus Routine Extremities Exam: Extremities: Present normal inspection; Absent calf tenderness or pedal edema OB - CN: A/P Assessment and Plan (1) Severe pre-eclampsia affecting childbirth: Status: Acute Plan Transfer of care to OB MD service. Mag infusion for 24 hours. Serial labs.
[2025-07-12 23:26] LABS: Hematocrit* 28.8 % (33.0-51.0); Hemoglobin* 9.8 gm/dL (12.0-16.0); Mean Corpuscular HGB Conc 34 gm/dL (32-36); Mean Corpuscular Hemoglobin 31 pg (26-34); Mean Corpuscular Volume 90 fL (80-100); Red Blood Count* 3.21 m/uL (4.00-5.20); White Blood Count* 17.26 K/uL (4.50-11.00)
[2025-07-12 23:30] LABS: Slide Review Reflex No
[2025-07-12 23:41] LABS: Blood Urea Nitrogen* 10 mg/dL (5-24); Creatinine* 0.7 mg/dL (0.5-1.5); Est. Creatinine Clearance* 105.16; Estimated Glomerular Filt Rate 126 ml/min
[2025-07-12 23:42] LABS: Alanine Aminotransferase* 18 U/L (4-35); Aspartate Amino Transferase* 44 U/L (12-35)
[2025-07-13] VITALS (11 sets, daily range): BP systolic 109–145; BP diastolic 66–92; PULSE 90–129; RESP 16–18; TEMP 36.4–36.9; O2SAT 96–98
[2025-07-13] MEDS: LACTATED RINGERS 1000 ML 1,000 ML 75 ML IV ×2 (01:51→14:55)
[2025-07-13 07:08] LABS: Hemoglobin* 9.4 gm/dL (12.0-16.0)
[2025-07-13] MEDS: DOCUSATE SODIUM 100 MG CAPSULE PO (09:37)
--- NOTE | 2025-07-13 13:16 | PM.ANPOST ---
Post Anesthesia Note Post Anesthesia Note Patient seen: Inpatient Respiratory Status: adequate Cardiovascular Status: adequate Mental Status: baseline Pain: adequate Temp: baseline Anesthetic awareness: N/A Complications: none Follow care: none
[2025-07-13] MEDS: IBUPROFEN 600 MG TABLET PO ×2 (14:10→20:16)
[2025-07-13] MEDS: MAGNESIUM Infusion 40 GM/1,000 ML IV.SOLN IVPB (16:26)
--- NOTE | 2025-07-13 17:20 | PM.OBPNVD1 ---
OB - PN:Subj Subjective Date Seen: 07/13/25 Narrative: Laney is a 19 year old G 1 P 0 at 41 1/7 weeks gestation that was admitted to the Center on 07/11/25 for PROM. She had an uncomplicated . She was diagnosed with preeclampsia with severe features based on severe range blood pressures requiring IV antihypertensives (IV labetalol 20 mg and 40mg). She was started on magnesium sulfate for seizure prophylaxis. Overnight patient had no complaints. Her pain is well controlled on oral pain medications. She is tolerating a regular diet. She has passed flatus. She is ambulating without difficulty. Lochia is scant. She is urinating without palumbo. Patient denies chest pain, SOB, n/v, headache, RUQ pain, vision changes, dizziness. OB - PN: Obj Exam Physical Exam: Vital signs: Temp Pulse Resp BP Pulse Ox O2 Del Method 98.1 F 117 H 16 127/72 97 Room Air 07/13/25 14:52 07/13/25 16:02 07/13/25 14:52 07/13/25 16:02 07/13/25 14:52 07/13/25 14:52 Narrative: Physical exam: General: No acute distress Psych: Alert and oriented x4, full affect HEENT: Normocephalic, atraumatic Heart: Regular rate and rhythm, no murmur rub or gallop Lungs: Clear to auscultation bilaterally Abdomen: Normoactive bowel sounds, soft, no tenderness, rebound, or guarding. Fundus firm 2 cm below umbilicus Skin: No lesions or rashes Lower extremities: 1+ bilateral lower extremity edema Pelvic exam: Scant lochia on pad OB - PN: Obj Data Labs Labs: Laboratory Results - last 24 hr 07/12/25 07/13/25 07/13/25 23:20 02:05 06:55 WBC 17.26 H RBC 3.21 L Hgb 9.8 L 9.4 L Hct 28.8 L MCV 90 MCH 31 MCHC 34 Plt Count 212 BUN 10 Creatinine 0.7 Estimated Creat Clear 105.16 Estimated GFR 126 Magnesium 4.6 H* 5.1 H* AST 44 H ALT 18 07/13/25 07/13/25 14:02 16:49 WBC RBC Hgb Hct MCV MCH MCHC Plt Count BUN Creatinine Estimated Creat Clear Estimated GFR Magnesium Cancelled 5.2 H* AST ALT OB - PN: A/P Delivery Assessment and Plan (1) Severe pre-eclampsia affecting childbirth: Status: Acute Assessment and Plan: Pre-Eclampsia with severe features - Based on severe range in blood pressure requiring IV antihypertensives - BPs overnight: 120-140s/60-90s - Symptoms: Denies - Magnesium: on Magnesium for seizure ppx - IV antihypertensives: s/p IV antihypertensives - PO antihypertensives: Nifedipine XL 30 mg BID - Pre-eclampsia labs on 07/12/25 @ 2315: Plt 212 Cr 0.7 ALT 18 AST 44 - UOP: 0.89 cc/kg/hr
[2025-07-14 01:00] VITALS: BP 123/79; PULSE 106; RESP 18; TEMP 36.4; O2SAT 98
[2025-07-14 05:57] VITALS: BP 135/75; PULSE 103; RESP 18; TEMP 36.4; O2SAT 98
[2025-07-14 09:54] VITALS: BP 127/84; PULSE 88; RESP 16; TEMP 36.5; O2SAT 98
[2025-07-14] MEDS: DOCUSATE SODIUM 100 MG CAPSULE PO (09:58)
--- NOTE | 2025-07-14 11:05 | P.OBPN_ITS ---
OB - PN:Subj Subjective Date Seen: 07/14/25 Narrative: Laney is a 19 year old G 1 P 0 at 41 1/7 weeks gestation that was admitted to the Center on 07/11/25 for PROM. She had an uncomplicated . Her 2nd stage was complicated by severe range blood pressures requiring IV antihyperte nsives. She was diagnosed with preeclampsia with severe features based on severe range blood pressures requiring IV antihypertensives (IV labetalol 20 mg and 40mg). Her care was assumed by MD's . I am assisting Dr. Bloom today with rounding. She has reviewed the chart with me. Patient was started on magnesium sulfate for seizure prophylaxis and this was discontinued last evening. She was started on oral nifedipine yesterday morning and is taking this BID. Her last mild range blood pressure was 07/13 at 1999 prior to her nifedepine dose at 2100. She has since been normotensive. Magnesium was discontinued last evening around 2029. She has had no new complaints overnight. She reports she is feeling better this morning since being of the magnesium. Her pain is well controlled on oral pain medications. She is tolerating a regular diet. She has passed flatus. She is ambulating without difficulty. Lochia is scant. She is urinating without palumbo but has emptied her own urine without re porting volume. This morning it appears she is fluid overloaded but it is likely inaccurate due to missed volumes of urine. Patient was educated on importance of documenting intake and output. Her overall weight is down from yesterday, this is reassuring. Patient denies chest pain, SOB, n/v, headache, RUQ pain, vision changes, dizziness. In review of the chart, Dr. Bloom and I noted that there have not been any pre-eclampsia labs other than magnesium labs sinces 07/12. Stat labs ordered this morning. OB - PN: Obj Exam Physical Exam: Vital signs: Temp Pulse Resp BP Pulse Ox O2 Del Method 97.7 F 88 16 127/84 98 Room Air 07/14/25 09:54 07/14/25 09:54 07/14/25 09:54 07/14/25 09:54 07/14/25 09:54 07/14/25 09:54 Narrative: General: No acute distress Psych: Alert and oriented x4, full affect HEENT: Normocephalic, atraumatic Heart: Regular rate and rhythm, no murmur rub or gallop Lungs: Clear to auscultation bilaterally Abdomen: Fundus firm 2 cm below umbilicus Skin: No lesions or rashes Lower extremities: trace bilateral lower extremity edema, normal reflexes Pelvic exam: Scant lochia on pad OB - PN: Obj Data Labs Labs: Laboratory Results - last 24 hr 07/13/25 07/13/25 07/13/25 14:02 16:49 20:00 Magnesium Cancelled 5.2 H* 5.5 H* OB - PN: A/P Delivery Assessment and Plan (1) Severe pre-eclampsia affecting childbirth: Status: Acute (2) care and examination immediately after delivery: Status: Acute (3) Lactating mother: Status: Acute Plan Comments: Pre-Eclampsia with severe features, consulted with Dr. Bloom. - Based on severe range in blood pressure requiring IV antihypertensives - BPs overnight: 110-140s/60-90s - Symptoms: Denies - Magnesium discontinued last evening - IV antihypertensives: s/p IV antihypertensives; no additional doses given in last 24 hours - PO antihypertensives: Continue Nifedipine XL 30 mg BID - Pre-eclampsia labs on 07/12/25 @ 2315: Plt 212 Cr 0.7 ALT 18 AST 44; stat labs ordered for this morning, Plts 227, Cr 0.5, AST 43, ALT 40 - Urine output likely adequate, encouraged accurate documentation/reporting to RN for documentation - Weight down 13lb from admission on 07/12 Routine care , may see as desired Anticipate discharge home tomorrow if stable
[2025-07-14 11:18] LABS: Hematocrit* 28.4 % (33.0-51.0); Hemoglobin* 9.6 gm/dL (12.0-16.0); Mean Corpuscular HGB Conc 34 gm/dL (32-36); Mean Corpuscular Hemoglobin 31 pg (26-34); Mean Corpuscular Volume 91 fL (80-100); Red Blood Count* 3.11 m/uL (4.00-5.20); White Blood Count* 13.56 K/uL (4.50-11.00)
[2025-07-14 11:28] LABS: Slide Review Reflex No
[2025-07-14 11:33] LABS: Alanine Aminotransferase* 20 U/L (4-35); Aspartate Amino Transferase* 43 U/L (12-35); Blood Urea Nitrogen* 11 mg/dL (5-24); Creatinine* 0.5 mg/dL (0.5-1.5); Est. Creatinine Clearance* 147.23; Estimated Glomerular Filt Rate 137 ml/min
[2025-07-14 15:49] VITALS: BP 119/70; PULSE 102; RESP 16; O2SAT 97
[2025-07-14 20:45] VITALS: BP 143/83; PULSE 97; RESP 16; TEMP 36.4; O2SAT 98
[2025-07-14 22:00] VITALS: BP 137/81; PULSE 105; O2SAT 100
[2025-07-15 00:56] VITALS: BP 124/80; PULSE 106; RESP 18; TEMP 36.7; O2SAT 98
[2025-07-15 04:15] VITALS: BP 137/98; PULSE 86; RESP 16; TEMP 36.4; O2SAT 98
--- NOTE | 2025-07-15 07:07 | P.DS_ITS ---
DS: Providers Provider Date Seen: 07/15/25 Date of admission: 07/11/25 18:45 Primary care physician: Not a Local Provider Admitting Clinician: Jonna Coronel CNM Consults: 07/12/25 22:11 Consult to Physician [CONS] Routine Comment: For preeclampsia with SF managment Consulting Provider: Kayy Harrison Has provider been notified: Yes Attending Physician on discharge: Jonna Coronel CNM Exam Narrative: Exam Narrative: General: Alert and oriented, in no acute distress Psych: Appropriate mood and affect Heart: Regular rate and rhythm, no rubs murmurs or gallops Lungs: Clear to posterior auscultation throughout. No wheezes, rales or crackles. Abdomen: Soft, nondistended. No right upper quadrant tenderness. Fundus palpates firm, at 1 below umbilicus, nontender. Extremities: +1 pitting edema bilaterally. Const: Vital Signs, click to edit/add: Vital Signs - 24 hr 07/14/25 09:54 07/14/25 15:49 07/14/25 20:45 Temperature 97.7 F 97.5 F L Pulse Rate [Pulse Oximeter] 88 102 H 97 Respiratory Rate 16 16 16 Blood Pressure [Ri ght Arm] 127/84 119/70 143/83 H Pulse Oximetry 98 97 98 Oxygen Delivery Me thod Room Air Room Air Room Air 07/14/25 22:00 07/15/25 00:56 07/15/25 04:15 Temperature 98.0 F 97.5 F L Pulse Rate [Pulse Oximeter] 105 H 106 H 86 Respiratory Rate 18 16 Blood Pressure [Ri ght Arm] 137/81 124/80 137/98 H Pulse Oximetry 100 98 98 Oxygen Delivery Me thod Room Air Room Air Room Air OB - DS: Summary Hospital Course Hospital Course: The patient is a 19 year old G 1 P 1 at 41 weeks gestation that was admitted to the Center on 07/11/25 for PROM. She had an uncomplicated vaginal delivery. She delivered a viable male . She is breast feeding. Intrapartum course was complicated by preeclampsia with severe features, by sustained SRBP requiring treatment. She received magnesium sulfate for seizure prophylaxis x24 hours, started on oral nifedipine XL 30mg BID for BP control. Last preE labs on 07/14 were normal - Hgb stable at 9.6, plt 227, Cr 0.5, AST 43 (from 44), ALT 20. In the last 24 hours, BPs have ranged from 119-143/70-98. 2 of last 6 BPs were above goal of 140/90. As such, plan to increase AM nifedipine to 60mg and maintain PM nifedipine at 30mg. She denies headaches, vision changes or RUQ pain. UOP 1500cc in last 8 hours. Patient is meeting appropriate milestones. She notes her pain is well controlled. Lochia is described as small volume. Tolerating p.o. intake without nausea or vomiting. No bowel or bladder concerns. Ambulates without difficulty. She is successfully. Bonding appropriately with baby boy, [place]. After dose adjustment, all BPs were within goal of <140/90. Discharge BP regimen: nifedipine XL 60mg QAM and 30mg QPM. Recommend BID BP checks at home. Plan discharge to home with follow up for MD BP check on 07/17. Peripartum Data delivery method: Vaginal [place] Gender: Male Time Spent with Patient Time attestation: Total time spent providing and/or coordinating discharge services: Time spent: Greater than 30 minutes Discharge Plan Discharge Disposition: Home, Self-Care Date of Admission: 07/11/25 18:45 Consulting Providers: Kayy Harrison Primary Care Provider: Provider,Not a Local Condition: Stable Anticipated Discharge Date/Time: 07/15/25 14:00 Discharge Medications: New nifedipine 30 mg Tablet Extended Release 30 mg PO HS Qty: 30 0RF nifedipine 30 mg Tablet Extended Release 60 mg PO QAM Qty: 30 0RF Continued ferrous sulfate [Feosol] 325 mg (65 mg iron) tablet 325 mg PO QDAY ascorbic acid (vitamin C) 1,000 mg capsule 1 g PO QDAY cholecalciferol (vitamin D3) 25 mcg (1,000 unit) capsule 25 mcg PO QDAY omega-3 fatty acids-fish oil [Fish Oil] 360-1,200 mg capsule 2 cap PO QDAY One-A-Day 400 mcg- 25 mg tablet,chewable 1 tab PO DAILY Discharge Orders: Discharge Order (Routine); Ordered 07/15/25 Ordered By: Genesis Vaughn Additional Instructions: Discharge instructions were reviewed with the patient including signs and symptoms of infection and home going medications Nothing vaginally for 6 weeks: no tampons or intercourse Do not drive while taking narcotic pain medication(s) Off Work or School for 8 weeks Symptoms to report to doctor: * Bleeding that saturates more than one pad per hour * Passing clots larger than the size of a golf ball * Pain not relieved by prescribed medication * Fever above 100.4 degrees Fahrenheit * A foul vaginal odor * Difficulty in emotions, mood, and functions * Thoughts of hurting yourself and/or * Painful, reddened area in your breast * Any drainage, redness, or tenderness in your IV/epidural site * Severe headache that doesn't improve after taking medications * Changes in vision, including temporary loss of vision, blurred vision, and/or light sensitivity * Upper abdominal pain (usually under ribs on the right side) * Decrease in urination or painful, frequent urinating * Chest pain * Shortness of breath * Tenderness or pain with redness and/swelling in the calf(s) of your leg [facility] a BP check 07/17/25 Call with BP greater than or equal to 160/110 Optional 2-week visit: discuss feeding concerns, review control options and screen for anxiety/depression. 6-week visit for an annual exam. consultation services are available to all mothers and babies for the first year after delivery.? To make an appointment, please call [phone]. Follow Up Appointments: Provider,Not a Local [Primary Care Provider, Family Practice] Forms: [employer] Info Instructions
[2025-07-15 08:15] VITALS: BP 138/85; PULSE 78; RESP 16; TEMP 36.7; O2SAT 97
[2025-07-15] MEDS: DOCUSATE SODIUM 100 MG CAPSULE PO (08:22)
[2025-07-15 09:58] VITALS: BP 120/74
[2025-07-15 11:51] VITALS: BP 125/75; PULSE 99; O2SAT 97
== END 2025-07-15 14:00 | disposition home or self-care (01) | DRG 560 ==
LOC: OB OUT 18:55 → OB 18:55
PROVIDERS: Advanced Practice Midwife; Obstetrics & Gynecology; Admitting Provider Advanced Practice Midwife; Visit Provider Advanced Practice Midwife
DX: O42.02 Full-term premature rupture of membranes, onset of labor within 24 hours of rupture (principal); O14.14 Severe pre-eclampsia complicating childbirth; O63.1 Prolonged second stage (of labor); O70.1 Second degree perineal laceration during delivery; O48.0 Post-term pregnancy; D64.9 Anemia, unspecified; O99.824 Streptococcus B carrier state complicating childbirth; O99.02 Anemia complicating childbirth; O77.0 Labor and delivery complicated by meconium in amniotic fluid; Z3A.41 41 weeks gestation of pregnancy; Z37.0 Single live birth
CPT/HCPCS: 01961; 01967; 36415; 82565; 83735; 84112; 84450; 84460; 84520; 85018; 85027; 86592; 86850; 86900; 86901; 88307; 93005; A9270; J0290; J0665; J2795; J3475; J7120

== ENCOUNTER 2025-07-15 21:57 | Emergency (ER) | payer BC, SELFPAY ==
[2025-07-15 22:01] VITALS: BP 150/91; PULSE 89; RESP 20; TEMP 36.6; O2SAT 97; BMI 28.0
--- NOTE | 2025-07-15 22:18 | ED.PREGNANCY ---
HPI - General Time Seen by Provider: 22:18 Date Seen: 07/15/25 Chief complaint: Post OB/Post- Complication Stated complaint: 2 days /passing blood clots Time Seen by Provider: 07/15/25 22:17 Source: patient Mode of arrival: ambulatory History of Present Illness HPI Narrative: Maggie is a 19 yo female who presents to the ED from home for evaluation of post complications/bleeding. Patient is a 19-year-old at 41 weeks gestation that was admitted on 07/11/2025 for PROM s/p uncomplicated vaginal delivery. Intrapartum course was complicated by preeclampsia with severe features sustained SRBP requiring treatment, s/p magnesium for seizure prophylaxis times 24 hours, started on oral nifedipine for blood pressure control. Patient was discharged earlier today, did not take her nighttime nifedipine yet. Patient states she came in due to vaginal bleeding. Patient states that she passed 2 large golf ball sized blood clots and was told to come in for bleeding. Patient states that other than the clot she feels as if she is having normal bleeding. Denies any abdominal pain. Patient reports feeling a little dizzy but are eyes feels well. Patient denies any vision changes, headaches, no significant lower extremity edema. Patient has follow-up with OBGYN on Sunday07/17/2025. Related Data Home Medications ?Medication ?Instructions ?Recorded ?Confirmed ascorbic acid (vitamin C) 1,000 mg 1 g PO QDAY 11/24/24 07/11/25 capsule cholecalciferol (vitamin D3) 25 25 mcg PO QDAY 11/24/24 07/11/25 mcg (1,000 unit) capsule omega-3 fatty acids-fish oil 360 2 cap PO QDAY 11/24/24 07/11/25 mg-1,200 mg capsule (Fish Oil) vitamins no.167-folic 1 tab PO DAILY 04/20/25 07/11/25 acid 400 mcg-dha 25 mg chewable tablet (One-A-Day ) ferrous sulfate 325 mg (65 mg 325 mg PO QDAY 05/12/25 07/11/25 iron) tablet (Feosol) Previous Rx's ?Medication ?Instructions ?Recorded nifedipine 30 mg tablet,extended 30 mg PO HS #30 tabs 07/15/25 release nifedipine 30 mg tablet,extended 60 mg (2 x 30 mg) PO QAM #30 tabs 07/15/25 release Allergies Allergy/AdvReac Type Severity Reaction Status Date / Time No Known Drug Allergies Allergy Verified 07/09/25 13:11 Review of Systems Narrative: Past medical history, past surgical history, medications, allergies, family history, and social history were reviewed with the patient. No additional pertinent items. A medically appropriate review of systems was performed with pertinent positives and negatives noted in HPI, all other systems negative. PFSH PFSH Medical History No pertinent past medical history ?Z78.9 - Other specified health status (ICD-10) Surgical History No pertinent past surgical history ?Z78.9 - Other specified health status (ICD-10) Social History Narrative: SOCIAL? ? Education: some college? ? Work: [employer] from home? ? Partner: Noah? works for [employer] Lives with: Noah Pets: none Abuse: Denies past ? Unable to assess current, partner present? ? Special Diet: Denies? ? Ok with a blood transfusion: yes? ? Culture or latter day beliefs: denies? RISK FACTORS? ? Exercise Times/wk: walking daily? ? Depression/Anxiety: depression in HS ? Previous Treatments early HS was on SSRI ? Therapy NA Seat Belt Use: Routinely ? Smoking: Denies past/present? ?Vaping quit 3 years ago for 2 years Alcohol/day: Denies while ?denies use when not ? Caffeine: coffee 1- 2 cups? ? Drug Use: Denies past/present? ? THC use in past quit about 3 years ago nothing current What is your current living situation?: I presently have a place to live Problems where you live: no known problems In the past 12 months, utilities in danger of being shut off: no In past 12 months, lack of transportation kept you from medical appts, meetings, work, or getting things needed for daily living: no In the past 12 mos, have been you worried that your food would run out before you had money to buy more?: never true In the past 12 mos, the food you bought just didn't last and you didn't have money to buy more?: never true Smoking Status: Never smoker Second hand tobacco smoke exposure: No How often do you have a drink containing alcohol: never AUDIT-C Alcohol total score: 0 Non-prescribed substance use: denies use How often does anyone, including family, friends and others, physically hurt you: never How often does anyone, including family, friends and others, insult or talk down to you: never How often does anyone, including family, friends and others, threaten you with harm: never How often does anyone, including family, friends and others, scream or curse at you: never Exam Narrative: Exam Narrative: General: Afebrile, no acute distress HEENT: Normocephalic, atraumatic, conjunctiva normal. MMM Neck: non-tender, supple Cardio: regular rate. regular rhythm Resp: Normal work of breathing, no respiratory distress, lungs clear bilaterally, no wheezing, rhonchi, rales Chest/Back: no visual signs of trauma, no midline tenderness, no CVA tenderness Abdomen: soft, non distension, no tenderness, no peritoneal signs Pelvic exam: patient declined Neuro: alert and fully oriented. CN II-XII grossly intact. Grossly normal strength and sensation in all extremities. MSK: no deformities. Normal range of motion Integumentary/Skin: no rash visualized, normal color Psych: normal affect, normal behavior Const: Vital Signs, click to edit/add: Vital Signs - 24 hr 07/15/25 22:01 07/15/25 22:29 07/15/25 22:31 Temperature 98 F Pulse Rate 85 90 Pulse Rate [Pulse Oximeter] 89 Respiratory Rate 20 18 18 Blood Pressure 146/94 H 136/92 H Blood Pressure [Ri ght Upper Arm] 150/91 H Pulse Oximetry 97 98 98 Oxygen Delivery Me thod Room Air 07/15/25 22:53 07/15/25 23:02 07/15/25 23:50 Temperature 98.0 F 98.0 F Pulse Rate 95 87 Pulse Rate [Pulse Oximeter] 85 Respiratory Rate 18 18 18 Blood Pressure 136/90 H 137/92 H Blood Pressure [Ri ght Upper Arm] 135/85 Pulse Oximetry 99 98 98 Oxygen Delivery Me thod Room Air 07/15/25 23:50 Temperature 98.0 F Pulse Rate Pulse Rate [Pulse Oximeter] 85 Respiratory Rate 18 Blood Pressure Blood Pressure [Ri ght Upper Arm] 135/85 Pulse Oximetry Oxygen Delivery Me thod Course Vital Signs Vital signs: Initial Vital Signs Temperature 98 F 07/15/25 22:01 Temperature Source Temporal Artery Scan 07/15/25 22:01 Pulse Rate 89 07/15/25 22:01 Respiratory Rate 20 07/15/25 22:01 Blood Pressure 150/91 H 07/15/25 22:01 Blood Pressure Mean 110 H 07/15/25 22:01 Blood Pressure Position Sitting 07/15/25 22:01 Pulse Oximetry 97 07/15/25 22:01 Oxygen Delivery Method Room Air 07/15/25 22:01 Vital Signs Temperature 98 F 07/15/25 22:01 Pulse Rate 89 07/15/25 22:01 Respiratory Rate 20 07/15/25 22:01 Blood Pressure 150/91 H 07/15/25 22:01 Pulse Oximetry 97 07/15/25 22:01 Oxygen Delivery Method Room Air 07/15/25 22:01 Temperature 98.0 F 07/15/25 23:50 Pulse Rate 85 07/15/25 23:50 Respiratory Rate 18 07/15/25 23:50 Blood Pressure 135/85 07/15/25 23:50 Pulse Oximetry 98 07/15/25 23:50 Oxygen Delivery Method Room Air 07/15/25 23:50 MDM - OB/Uterine Contractions MDM Narrative Medical decision making narrative: Maggie is a 19 yo female who presents to the ED from home for evaluation of post complications/bleeding. Upon arrival patient is nontoxic appearing, afebrile, no distress. Upon arrival initial blood pressure 150/91 with repeat 146/94 and repeat 136/92. Patient states she did not take her bedtime dose of nifedipine yet. Otherwise patient hemodynamically stable. Patient reports she feels as if her bleeding is typical for postop but did have large clots x2. Patient declined pelvic exam as she states it is too uncomfortable in too swollen down there. Comprehensive labs were performed and remarkable for white blood cell count of 8.1, hemoglobin 9.2(previously earlier in the day 9.6) no other acute metabolic electrolyte abnormality, AST 54 (previously 43), alkaline phosphatase mildly elevated 158. On re-evaluation patient's blood pressure continues to be 135/85. Patient asymptomatic and believes bleeding that has been stable, no further episodes of large cautious or clots. Patient tearful and would like to go home. I discussed patient management with OBGYN doctor Johana who discharge patient earlier today. At this time agrees with discharge as patient does have follow-up in clinic on Sunday for recheck. Discussed strict bleeding precautions and return to the emergency department or clinic during daytime hours if persistent having bleeding, persistent large clots, soaking a pad every hour, or become symptomatic with dizziness/weakness/chest pain/shortness of breath, worsening symptoms. Patient understands and agrees with the plan. Patient will take blood pressure medication tonight prior to bedtime, and will continue to monitor blood pressure as previously directed. Patient and spouse understand and will be discharged. Medical Records Attestation: I reviewed the patient's medical records. Lab Data Attestation: I reviewed the patient's lab results. Labs: Lab Results 07/15/25 Range/Units 22:25 WBC 8.16 (4.50-11.00) K/uL RBC 2.97 L (4.00-5.20) m/uL Hgb 9.2 L (12.0-16.0) gm/dL Hct 27.3 L (33.0-51.0) % MCV 92 (80-100) fL MCH 31 (26-34) pg MCHC 34 (32-36) gm/dL RDW Coeff of Renee 12.7 (11.5-15.5) % Plt Count 317 (140-440) K/uL Neut % (Auto) 55.3 (42.0-72.0) % Lymph % (Auto) 33.8 (20-44) % [place] % (Auto) 6.5 (0.0-11.0) % Eos % (Auto) 3.7 (0.0-7.0) % Baso % (Auto) 0.5 (0.0-3.0) % Neut # (Auto) 4.51 (1.7-7.0) K/uL Lymph # (Auto) 2.76 (0.90-2.90) K/uL [place] # (Auto) 0.50 (0.00-0.90) K/UL Eos # (Auto) 0.30 (0.00-0.50) K/uL Baso # (Auto) 0.04 (0.00-0.30) K/uL Abs Immat Gran (auto) 0.02 (0.00-0.30) K/uL Imm/Tot Granulo (auto) 0.2 % Sodium 136 (135-149) mmol/L Potassium 4.0 (3.6-5.1) mmol/L Chloride 105 (96-114) mmol/L Carbon Dioxide 25 (20-32) mmol/L Anion Gap 6 L (7-15) mEq/L BUN 12 (5-24) mg/dL Creatinine 0.6 (0.5-1.5) mg/dL Estimated Creat Clear 122.69 Estimated GFR 131 ml/min Glucose 84 (60-115) mg/dL Calcium 9.1 (8.4-10.6) mg/dL Total Bilirubin 0.3 (0.1-1.5) mg/dL AST 54 H (12-35) U/L ALT 30 (4-35) U/L Alkaline Phosphatase 158 H (40-150) U/L Total Protein 6.7 (6.0-8.3) g/dL Albumin 3.6 (3.3-5.0) g/dL Discharge Plan Discharge Clinical Impression: bleeding Patient Disposition: Home, Self-Care Condition: Improved Additional Instructions: Please follow-up with OBGYN at your scheduled appointment on Sunday. Please continue to monitor your bleeding. Please return to the ER or call the clinic (if daytime hours) if persistent heavy bleeding which were soaking a pad every hour, persistent large clots, weakness, dizziness, chest pain, shortness of breath, any worsening symptoms. Please continue blood pressure medication and monitor per OBGYN instructions. It was a pleasure taking care of you today. We hope you feel better soon. Prescriptions: No Action ferrous sulfate [Feosol] 325 mg (65 mg iron) tablet 325 mg PO QDAY ascorbic acid (vitamin C) 1,000 mg capsule 1 g PO QDAY cholecalciferol (vitamin D3) 25 mcg (1,000 unit) capsule 25 mcg PO QDAY omega-3 fatty acids-fish oil [Fish Oil] 360-1,200 mg capsule 2 cap PO QDAY One-A-Day 400 mcg- 25 mg tablet,chewable 1 tab PO DAILY nifedipine 30 mg Tablet Extended Release 30 mg PO HS Qty: 30 0RF nifedipine 30 mg Tablet Extended Release 60 mg PO QAM Qty: 30 0RF Follow Up/Referrals: Provider,Not a Local [Primary Care Provider, Family Practice] Stand Alone Forms: [facility] Info Instructions
[2025-07-15 22:29] VITALS: BP 146/94; PULSE 85; RESP 18; O2SAT 98
[2025-07-15 22:31] VITALS: BP 136/92; PULSE 90; RESP 18; O2SAT 98
[2025-07-15 22:53] VITALS: BP 136/90; PULSE 95; RESP 18; O2SAT 99
[2025-07-15 23:01] LABS: Hematocrit* 27.3 % (33.0-51.0); Hemoglobin* 9.2 gm/dL (12.0-16.0); Immature Granulocytes Abs Auto 0.02 K/uL (0.00-0.30); Immature Granulocytes Pct Auto 0.2 %; Lymphocytes Absolute Auto 2.76 K/uL (0.90-2.90); Mean Corpuscular HGB Conc 34 gm/dL (32-36); Mean Corpuscular Hemoglobin 31 pg (26-34); Mean Corpuscular Volume 92 fL (80-100); RDW Coefficient of Variation % 12.7 % (11.5-15.5); Red Blood Count* 2.97 m/uL (4.00-5.20); White Blood Count* 8.16 K/uL (4.50-11.00)
[2025-07-15 23:02] VITALS: BP 137/92; PULSE 87; RESP 18; TEMP 36.7; O2SAT 98
[2025-07-15 23:11] LABS: Slide Review Reflex No
[2025-07-15 23:13] LABS: Albumin* 3.6 g/dL (3.3-5.0); Chloride* 105 mmol/L (96-114)
[2025-07-15 23:14] LABS: Potassium* 4.0 mmol/L (3.6-5.1); Sodium* 136 mmol/L (135-149)
[2025-07-15 23:16] LABS: Blood Urea Nitrogen* 12 mg/dL (5-24); Creatinine* 0.6 mg/dL (0.5-1.5); Est. Creatinine Clearance* 122.69; Estimated Glomerular Filt Rate 131 ml/min
[2025-07-15 23:17] LABS: Alanine Aminotransferase* 30 U/L (4-35); Alkaline Phosphatase* 158 U/L (40-150); Anion Gap 6 mEq/L (7-15); Aspartate Amino Transferase* 54 U/L (12-35); Bilirubin Total* 0.3 mg/dL (0.1-1.5); Calcium* 9.1 mg/dL (8.4-10.6); Carbon Dioxide* 25 mmol/L (20-32); Glucose* 84 mg/dL (60-115); Total Protein* 6.7 g/dL (6.0-8.3)
[2025-07-15 23:50] VITALS: BP 135/85; PULSE 85; RESP 18; TEMP 36.7; O2SAT 98
== END 2025-07-15 23:50 | disposition home or self-care (01) ==
PROVIDERS: Emergency Provider Emergency Medicine
DX: O72.1 Other immediate postpartum hemorrhage (principal)
CPT/HCPCS: 36415; 80053; 85025; 86850; 86900; 86901; 99284; 99285

== ENCOUNTER 2025-08-25 09:49 | Outpatient (CLI) | payer BC, SELFPAY ==
[2025-08-28 11:48] LABS: Pap Test Digital Imaging Done
== END 2025-08-25 09:50 | disposition home or self-care (01) ==
LOC: NFLDREF 09:49
PROVIDERS: Visit Provider Physician Assistant
DX: Z12.4 Encounter for screening for malignant neoplasm of cervix (principal); O99.013 Anemia complicating pregnancy, third trimester
CPT/HCPCS: 87624; 87625; 88141; 88142; 88175